=== PATIENT | female | born 1945 | race Caucasian/White ===

== ENCOUNTER 2022-09-14 00:15 | Emergency (ER) | payer OTHER ==
[~2022-09-14] VITALS: Ht 165.1 cm; Wt 67.1 kg
[2022-09-14 00:24] VITALS: BP_SYST 161
--- NOTE | 2022-09-14 00:29 | NUR ---
PT BIB FAMILY FR HOME C/O HIGH BP OF 200/102 TAKEN AT HOME AFTER PT VOMITED X 3 AROUND MIDNIGHT. BP IN TRIAGE = 161/90. PER PT, SHE HAD ANESTHESIA SHOT ON HER LEFT THUMB DUE TO LEFT THUMB NAIL FUNGAL INFECTION AND IS CURRENTLY ON ANTIFUNGAL MEDS. NKDA. NO PMH
--- NOTE | 2022-09-14 00:34 | NUR ---
Placed in room 06 . Placed on lunchroom monitor, blood pressure machine and pulse oximeter. To gown for exam. Side rails up. Report given to JANIS SAMS.
--- NOTE | 2022-09-14 00:34 | NUR ---
Received pt in bed 6, A&OX4, NAD. C/o of high blood pressure, but bedside bp is now 148/77. No c/o of Chest pain at this time.
--- NOTE | 2022-09-14 00:38 | NUR ---
ER Dr. Montaño at bedside examining patient.
[2022-09-14] MEDS ORDERED: ONDA-8 TL (00:46)
--- NOTE | 2022-09-14 00:50 | NUR ---
Patient given written and verbal discharge instructions and verbalizes understanding. ER MD Dr. Montaño discussed with patient the results and treatment provided. Patient in stable condition. ID arm band removed. Rx of Zofran given. Patient educated on pain management and to follow up with PMD. Pain Scale 0. Opportunity for questions provided and answered. Medication side effect fact sheet provided.
[2022-09-14 00:55] VITALS: BP_SYST 152
== END 2022-09-14 00:50 | disposition home or self-care (01) ==
LOC: SED 00:15
DX: R03.0 Elevated blood-pressure reading, without diagnosis of hypertension (principal); R11.10 Vomiting, unspecified; Z79.899 Other long term (current) drug therapy
CPT/HCPCS: 93005; 99283